=== PATIENT | male | born 1940 | race Caucasian/White ===

== ENCOUNTER 2016-08-02 18:23 | Emergency (ER) | payer MEDICAID, OTHER ==
[~2016-08-02] VITALS: Wt 78.5 kg
--- NOTE | 2016-08-02 22:13 | ERA ---
ER Documentation Chief Complaint Date/Time DATE: 08/02/16 TIME: 22:12 Chief Complaint Painful urination HPI The patient is a 75-year-old male, presenting to the ER because of frequent urination and painful urination for 2 days. He has similar symptoms previously from an enlarged prostate, requiring TURP in [place]. He denies fever, chills, syncope, near syncope, neck pain, chest pain, dyspnea, abdominal pain, vomiting , dysuria, diarrhea, constipation. He recently came to [place] from [place] for 7 months. He does not smoke nor drink Past medical history: BPH, hypertension, insomnia, left eye blindness Past surgical history: TURP ROS All systems reviewed and are negative except as per history of present illness. Medications Home Meds Active Scripts Tamsulosin Hcl* (Flomax*) 0.4 Mg Cap.er.24h, 0.4 MG PO QPM, #30 CAP Prov:JACKELIN CHAMPION MD 08/03/16 Reported Medications Enalapril Maleate* (Enalapril Maleate*) 2.5 Mg Tablet, 2.5 MG PO DAILY, TAB 08/02/16 Mirtazapine* (Mirtazapine*) 7.5 Mg Tablet, 7.5 MG PO HS, TAB 08/02/16 Fluoxetine Hcl* (Prozac*) 10 Mg Tablet, 10 MG PO DAILY, TAB 08/02/16 Discontinued Reported Medications Lorazepam* (Lorazepam*) 0.5 Mg Tablet, 0.5 MG PO HS Y for ANXIETY, TAB 08/02/16 Allergies Allergies: Coded Allergies: No Known Allergy (Unverified , 08/02/16) Physical Exam Vitals Vital Signs Date Time Temp Pulse Resp B/P Pulse Ox O2 Delivery O2 Flow Rate FiO2 08/03/16 02:52 98.7 68 17 134/57 99 Room Air 08/03/16 00:56 98.7 76 17 121/59 99 Room Air 08/02/16 19:15 99.0 63 20 113/53 99 Physical Exam Const: No acute distress. Head: Atraumatic. Eyes: Normal Conjunctiva. ENT: Normal External Ears, Nose and Mouth. Neck: Full range of motion. No meningismus. Resp: Clear to auscultation bilaterally. Cardio: Regular rate and rhythm. Abd: Soft, distended urinary bladder, normal bowel sounds, non tender. Skin: No petechiae or rashes. Back: No midline or flank tenderness. Ext: No cyanosis, or edema. Neur: Awake and alert. No focal deficit Psych: Normal Mood and Affect. Result Diagram: 08/02/16221508/02/162215 Results 24 hrs Laboratory Tests Test 08/02/16 00:05 08/02/16 22:16 08/03/16 00:12 Urine Color YELLOW Urine Clarity CLEAR Urine pH 5.0 Urine Specific Madeline 1.017 Urine Ketones NEGATIVEmg/dL Urine Nitrite NEGATIVEmg/dL Urine Bilirubin NEGATIVEmg/dL Urine Urobilinogen NEGATIVEmg/dL Urine Leukocyte Esterase NEGATIVELeu/ul Urine Hemoglobin NEGATIVEmg/dL Urine Glucose NEGATIVEmg/dL Urine Total Protein NEGATIVEmg/dl White Blood Count 9.510^3/ul Red Blood Count 4.1410^6/ul Hemoglobin 12.5g/dl Hematocrit 37.6% Mean Corpuscular Volume 90.8fl Mean Corpuscular Hemoglobin 30.2pg Mean Corpuscular Hemoglobin Concent 33.2g/dl Red Cell Distribution Width 13.2% Platelet Count 03323^3/UL Mean Platelet Volume 10.2fl Neutrophils % 61.5% Lymphocytes % 26.5% Monocytes % 8.4% Eosinophils % 2.3% Basophils % 0.6% Nucleated Red Blood Cells % 0.0/100WBC Neutrophils # 5.810^3/ul Lymphocytes # 2.510^3/ul Monocytes # 0.810^3/ul Eosinophils # 0.210^3/ul Basophils # 0.110^3/ul Nucleated Red Blood Cells # 0.010^3/ul Sodium Level 144mmol/L Potassium Level 4.8mmol/L Chloride Level 113mmol/L Carbon Dioxide Level 19mmol/L Anion Gap 17 Blood Urea Nitrogen 22mg/dl Creatinine 1.83mg/dl Glucose Level 114mg/dl Calcium Level 9.5mg/dl Total Bilirubin 0.3mg/dl Direct Bilirubin 0.00mg/dl Indirect Bilirubin 0.3mg/dl Aspartate Amino Transf (AST/SGOT) 17IU/L Alanine Aminotransferase (ALT/SGPT) 24IU/L Alkaline Phosphatase 64IU/L Total Protein 8.6g/dl Albumin 4.7g/dl Globulin 3.90g/dl Albumin/Globulin Ratio 1.20 Lipase 331U/L Bedside Urine pH (LAB) 5.5 Bedside Urine Protein (LAB) Trace Bedside Urine Glucose (UA) Negative Bedside Urine Ketones (LAB) Negative Bedside Urine Blood Negative Bedside Urine Nitrite (LAB) Negative Bedside Urine Leukocyte Esterase (L Negative Current Medications Medications (Trade) Dose Ordered Sig/Jesus Route PRN Reason Start Time Stop Time Status Last Admin Dose Admin Morphine Sulfate (morphine) 2 mg ONCE ONCE IV 08/03/16 01:30 08/03/16 01:31 DC 08/03/16 01:38 Ondansetron HCl (Zofran Inj) 4 mg ONCE STAT IV 08/03/16 01:30 08/03/16 01:31 DC 08/03/16 01:38 Procedures/MDM MEDICAL MAKING DECISION: The patient is a 75-year-old male, presenting to the ER because of dysuria and polyuria, most likely due to chronic BPH. We inserted a Cameron catheter that only drained out about 150 cc of urine. He was treated with morphine 2 mg IV for pain, Zofran 4 mg IV for nausea with good response The differential diagnoses considered include but are not limited to prostate malignancy, BPH, cystitis cholelithiasis, cholecystitis, cystitis, pancreatitis , hepatitis, gastritis, peptic ulcer disease, gastric ulcer, appendicitis, diverticulitis, cholangitis, choledocholithiasis, partial small bowel obstruction. Departure Diagnosis: Primary Impression: BPH (benign prostatic hyperplasia) Additional Impressions: Anemia Renal insufficiency Condition: Good Comments He was discharged with Flomax I discussed the findings with the patient. I advised the patient to follow-up with the on-call urologist Dr. Jones in about 1-2 days, sooner if needed and return if any concern. JACKELIN CHAMPION MD Aug 02, 2016 22:13
[2016-08-02 22:28] LABS: ADD SCAN DIFF NO
[2016-08-02] MEDS ORDERED: FLUO10TA PO (22:30)
[2016-08-02] MEDS ORDERED: LORA0.5T PO (22:31)
[2016-08-02 22:32] LABS: BASOPHIL # 0.1 10^3/ul (0.0-0.1); BASOPHILS % 0.6 % (0.0-2.0); EOSINOPHILS # 0.2 10^3/ul (0.0-0.5); EOSINOPHILS % 2.3 % (0.0-7.0); HEMATOCRIT 37.6 % (42.0-52.0); HEMOGLOBIN 12.5 g/dl (14.0-18.0); LYMPHOCYTES # 2.5 10^3/ul (0.8-2.9); LYMPHOCYTES % 26.5 % (15.0-51.0); MEAN CORPUSCULAR HEMOGLOBIN 30.2 pg (29.0-33.0); MEAN CORPUSCULAR HGB CONC 33.2 g/dl (32.0-37.0); MEAN CORPUSCULAR VOLUME 90.8 fl (82.0-101.0); MEAN PLATELET VOLUME 10.2 fl (7.4-10.4); MONOCYTE # 0.8 10^3/ul (0.3-0.9); MONOCYTES % 8.4 % (0.0-11.0); NEUTROPHIL # 5.8 10^3/ul (1.6-7.5); NEUTROPHILS % 61.5 % (39.0-77.0); PLATELET COUNT 248 10^3/UL (140-415); RED BLOOD COUNT 4.14 10^6/ul (4.70-6.10); RED CELL DISTRIBUTION WIDTH 13.2 % (11.5-14.5); WHITE BLOOD COUNT 9.5 10^3/ul (4.8-10.8)
[2016-08-02] MEDS ORDERED: MIRT7.5T8 PO (22:34)
[2016-08-02] MEDS ORDERED: ENAL2.5T PO (22:35)
[2016-08-02 22:48] LABS: ALBUMIN 4.7 g/dl (3.3-4.9); ALBUMIN/GLOBULIN RATIO 1.2; BILIRUBIN,INDIRECT 0.3 mg/dl (0-1.1); BILIRUBIN,TOTAL 0.3 mg/dl (0.2-1.3); CALCIUM 9.5 mg/dl (8.4-10.2); CREATININE 1.83 mg/dl (0.61-1.24); POTASSIUM 4.8 mmol/L (3.5-5.1); TOTAL PROTEIN 8.6 g/dl (6.1-8.1)
[2016-08-03 00:09] LABS: URINE BLOOD (Dip) POC Negative (NEGATIVE)
[2016-08-03 00:44] LABS: ADD UMIC NO; UR ASCORBIC ACID 40 mg/dL (NEGATIVE); UR BILIRUBIN (Dip) NEGATIVE (NEGATIVE); UR BLOOD (Dip) NEGATIVE (NEGATIVE); UR CLARITY CLEAR (CLEAR); UR COLOR YELLOW (YELLOW); UR GLUCOSE (Dip) NEGATIVE (NEGATIVE); UR KETONES (Dip) NEGATIVE (NEGATIVE); UR LEUKOCYTE ESTERASE (Dip) NEGATIVE Leu/ul (NEGATIVE); UR NITRITE (Dip) NEGATIVE (NEGATIVE); UR SPECIFIC GRAVITY (Dip) 1.017 (1.003-1.030); UR TOTAL PROTEIN (Dip) NEGATIVE (NEGATIVE); UR UROBILINOGEN (Dip) NEGATIVE (NEGATIVE)
[2016-08-03] MEDS ORDERED: morphine 2 MG INJ IV ONE (01:30)
[2016-08-03] MEDS ORDERED: ONDANSETRON 4 MG INJ IV STA (01:30)
[2016-08-03] MEDS ORDERED: TAMS-14 PO (02:32)
[2016-08-03 02:52] VITALS: BP 134/57; PULSE 68; RESP 17; TEMP 98.7
== END 2016-08-03 02:55 | disposition home or self-care (01) ==
LOC: E/R 18:23
DX: N40.0 Benign prostatic hyperplasia without lower urinary tract symptoms (principal); D64.9 Anemia, unspecified; N28.9 Disorder of kidney and ureter, unspecified; I10 Essential (primary) hypertension
CPT/HCPCS: 36415; 51702; 80053; 81003; 83690; 85025; 87086; 96374; 96375; J2270; J2405; Z7502